=== PATIENT | female | born 1985 | race Asian ===

== ENCOUNTER 2018-10-10 00:14 | Emergency (ER) | payer BC ==
[~2018-10-10] VITALS: Ht 154.9 cm; Wt 47.2 kg
[2018-10-10 00:26] VITALS: BP_SYST 110
--- NOTE | 2018-10-10 00:42 | NUR ---
0042 - Patient to ER bed 8 to gown for evaluation. Side rails up. Report given to DEV Gabriel.
--- NOTE | 2018-10-10 00:42 | NUR ---
Pt c/o vaginal bleeding and 5/10 pelvic pain x 30 min [employer]. Pt describes as large amount of bright red blood and states that she felt something drop out into the toilet, but could not see what it was. Denies dysuria, no N/V/D. Pt states that she is 7 weeks .
--- NOTE | 2018-10-10 00:55 | NUR ---
Dr. Jacome at bedside.
[2018-10-10 02:08] LABS: BASOPHILS % (AUTO) 0.4 % (0.0-2.0); EOSINOPHILS # (AUTO) 0.3 K/uL (0.0-0.4); EOSINOPHILS % (AUTO) 4.8 % (0.0-4.0); HEMATOCRIT 37.6 % (36-48); HEMOGLOBIN 12.7 g/dL (12.0-16.0); LYMPHOCYTES # (AUTO) 1.9 K/uL (1.0-5.5); MEAN CORPUSCULAR HEMOGLOBIN 31 pg (27-31); MEAN CORPUSCULAR HGB CONC 34 % (32-36); MEAN CORPUSCULAR VOLUME 91 fL (79.0-98.0); MONOCYTES # (AUTO) 0.4 K/uL (0.0-1.0); MONOCYTES % (AUTO) 6.4 % (1.7-9.3); NEUTROPHILS # (AUTO) 3.4 K/uL (1.8-7.7); NEUTROPHILS % (AUTO) 56.4 % (40.0-70.0); PLATELET COUNT (AUTO) 160 K/uL (130-430); RED BLOOD CELL COUNT(AUTO) 4.13 MIL/uL (4.2-6.2); RED CELL DISTRIBUTION WIDTH 13.3 % (9.0-15.0)
--- NOTE | 2018-10-10 02:19 | NUR ---
Pt to U/S by W/C.
--- NOTE | 2018-10-10 02:34 | NUR ---
Pt returns from U/S. No needs verbalized.
--- NOTE | 2018-10-10 03:00 | NUR ---
Pt denies any further vaginal bleeding, no c/o pain or discomfort and no needs verbalized.
[2018-10-10] MEDS ORDERED: LIDOCAINE 1% 10 MG/ML, 20 ML MDV INJ ONE (03:45)
[2018-10-10] MEDS ORDERED: cefTRIAXone 1 GM VIAL IM ONE (03:45)
[2018-10-10 04:35] VITALS: BP_SYST 122
--- NOTE | 2018-10-10 04:35 | NUR ---
Patient given written and verbal discharge instructions and verbalizes understanding. ER MD discussed with patient the results and treatment provided. Patient in stable condition. ID arm band removed. Rx of Keflex given. Patient educated on pain management and to follow up with PMD. Pain Scale 0/10. Opportunity for questions provided and answered. Medication side effect fact sheet provided.
== END 2018-10-10 04:35 | disposition home or self-care (01) ==
LOC: SED 00:14
DX: O23.41 Unspecified infection of urinary tract in pregnancy, first trimester (principal); Z3A.01 Less than 8 weeks gestation of pregnancy
CPT/HCPCS: 36415; 76805; 81002; 81025; 84702; 85025; 86900; 86901; 96372; 99284; J0696; J2001